=== PATIENT | female | born 1955 | race Caucasian/White ===

== ENCOUNTER 2020-10-26 15:14 | Emergency (ER) | payer OTHER ==
[2020-10-26 15:23] VITALS: BMI 26.6
[2020-10-26] MEDS ORDERED: CASIRIVIMAB/IMDEVIMAB 10 ML in SODIUM CHLORIDE 100 ML IVPB ONE (15:40)
[2020-10-26] MEDS ORDERED: METOCLOPRAMIDE HCL INJECTION 10 MG/2 ML VIAL IVPB ONE (17:34)
[2020-10-26 18:40] VITALS: BP 126/76; PULSE 84; TEMP 98.1
== END 2020-10-27 11:16 | disposition home or self-care (01) ==
LOC: JCOVINFU 15:14
PROC: 3E03329 Introduction of Other Anti-infective into Peripheral Vein, Percutaneous Approach (ICD-10-PCS; principal; 2020-10-26)
PROC: 3E033GC Introduction of Other Therapeutic Substance into Peripheral Vein, Percutaneous Approach (ICD-10-PCS; 2020-10-26)
DX: U07.1 COVID-19 (principal)
CPT/HCPCS: 99284-25; M0240; Q0240

== ENCOUNTER 2021-09-24 08:21 | Emergency (ER) | payer OTHER | END 2021-09-24 08:34 | disposition home or self-care (01) | LOC: JVIRT 08:21 | DX: G44.89 Other headache syndrome (principal); Z20.822 Contact with and (suspected) exposure to COVID-19 | CPT/HCPCS: C9803-CS; G2251-GT; Q3014-GT; U0003; U0005 ==

== ENCOUNTER 2021-12-10 11:13 | Emergency (ER) | payer BC ==
[2021-12-10 11:19] VITALS: BP 124/69; PULSE 95; RESP 18; BMI 27.4
[2021-12-10] MEDS ORDERED: ACETAMINOPHEN 500 MG TABLET (FP) PO ONE (11:23)
[2021-12-10] MEDS ORDERED: ACETAMINOPHEN 325 MG TABLET (FP) ONE (11:36)
== END 2021-12-10 13:10 | disposition home or self-care (01) ==
LOC: JER 11:13
DX: B34.9 Viral infection, unspecified (principal)
CPT/HCPCS: 0241U-QW; 99283-25